=== PATIENT | female | born 1970 | race Two or more races ===

== ENCOUNTER 2018-04-03 05:34 | Emergency (ER) | payer OTHER ==
[~2018-04-03] VITALS: Ht 165.1 cm; Wt 72.1 kg
[2018-04-03] MEDS ORDERED: NORFLEX100MG PO (12:00)
== END 2018-04-03 12:16 | disposition home or self-care (01) ==
LOC: ER 05:34 → CPU-OBS 05:38 → ER 05:38
DX: R07.89 Other chest pain (principal)

== ENCOUNTER 2018-04-30 14:12 | Emergency (ER) | payer OTHER ==
[~2018-04-30] VITALS: Ht 165.1 cm; Wt 72.6 kg
[~2018-04-30 14:12] MED LIST: NORFLEX100MG PO
== END 2018-04-30 19:17 | disposition home or self-care (01) ==
LOC: ER 14:12
DX: G43.809 Other migraine, not intractable, without status migrainosus (principal); M79.602 Pain in left arm